=== PATIENT | male | born 1955 | race Caucasian/White ===

== ENCOUNTER → 2020-11-22 | Outpatient (CLI) | payer OTHER ==
[~2020-11-22] MED LIST: ALPR1TAB2 PO; DULO60CA6 PO; IBUP-1060 PO; VALS40TA2 PO
[2020-11-22 14:13] LABS: BASO % 0 % (0-3); EOS # 0.1 x10^3/uL (0.0-0.7); EOS % 2 % (0-3); HEMOGLOBIN 14.7 g/dL (13.0-17.5); LYMPH # 2.4 x10^3/uL (1.0-4.8); LYMPH % 35 % (24-48); MEAN CORPUSCULAR HEMOGLOBIN 29 pg (25-35); MEAN CORPUSCULAR HGB CONC 34 g/dL (31-37); MEAN CORPUSCULAR VOLUME 86 fL (79-100); MONO # 0.4 x10^3/uL (0.0-1.1); MONO % 6 % (0-9); NEUT # 3.9 x10^3/uL (1.8-7.7); NEUT % 57 % (31-73); PLATELET COUNT 264 x10^3/uL (140-400); RED BLOOD COUNT 5.01 x10^6/uL (4.30-5.70); RED CELL DISTRIBUTION WIDTH 13.3 % (11.5-14.5); WHITE BLOOD COUNT 6.8 x10^3/uL (4.0-11.0)
[2020-11-22 14:24] LABS: PROTHROMBIN TIME PATIENT 12.2 SEC (11.7-14.0)
[2020-11-22 14:31] LABS: ALBUMIN 3.6 g/dL (3.4-5.0); ALBUMIN/GLOBULIN RATIO 1.2 (1.0-1.7); CALCIUM 8.4 mg/dL (8.5-10.1); CREATININE 0.9 mg/dL (0.7-1.3); POTASSIUM 4.1 mmol/L (3.5-5.1); TOTAL BILIRUBIN 0.3 mg/dL (0.2-1.0); TOTAL PROTEIN 6.6 g/dL (6.4-8.2)
--- NOTE | 2020-11-22 15:23 | EKG ---
[facility] [address] [place] [id number] Test Date: 2020-11-22 Test Time: 15:19:28 Pat Name: CRISTELA CULVER Department: Room: Gender: [employer]er: J : 1955 Requested By: CHRISTY CARR Order Number: [id number] Reading MD: Lamine Denton MD Measurements Intervals [place] Rate: 77 P: -47 ME: 154 QRS: -6 QRSD: 88 T: 7 QT: 374 QTc: 425 Interpretive Statements SINUS RHYTHM NON-SPECIFIC ST/T CHANGES Electronically Signed On 11-23-2020 11:51:52 CDT by Lamine Denton MD
[2020-11-23 07:25] LABS: HEMOGLOBIN A1C 5.7 % (4.8-5.6)
== END ==
LOC: SURGPAT 13:28
PROVIDERS: ATTEND Neurological Surgery
DX: Z01.818 Encounter for other preprocedural examination (principal); R94.31 Abnormal electrocardiogram [ECG] [EKG]; M48.02 Spinal stenosis, cervical region; M54.12 Radiculopathy, cervical region; R53.1 Weakness
CPT/HCPCS: 36415; 80053; 83036; 85025; 85610; 85730; 87641; 93005

== ENCOUNTER → 2020-12-03 | Outpatient (CLI) | payer OTHER | LOC: LAB 09:02 | PROVIDERS: ATTEND Neurological Surgery | DX: Z01.812 Encounter for preprocedural laboratory examination (principal); U07.1 COVID-19; M48.02 Spinal stenosis, cervical region; M54.12 Radiculopathy, cervical region | CPT/HCPCS: U0003; U0005 ==

== ENCOUNTER → 2020-12-31 | Outpatient (CLI) | payer OTHER ==
[2020-12-30 15:48] VITALS: BP 132/81
[~2020-12-31] MED LIST changes: +ASCO-151 PO; +CYCL10TA2 PO; +METH-562 PO; +METH100V PO; +OXYC-325 PO; +SENN1TAB37 PO
[2020-12-31 12:49] LABS: BASO % 0 % (0-3); EOS # 0.1 x10^3/uL (0.0-0.7); EOS % 1 % (0-3); HEMATOCRIT 43.1 % (39.0-53.0); HEMOGLOBIN 14.7 g/dL (13.0-17.5); LYMPH # 2.3 x10^3/uL (1.0-4.8); LYMPH % 28 % (24-48); MEAN CORPUSCULAR HEMOGLOBIN 29 pg (25-35); MEAN CORPUSCULAR HGB CONC 34 g/dL (31-37); MEAN CORPUSCULAR VOLUME 85 fL (79-100); MONO # 0.7 x10^3/uL (0.0-1.1); MONO % 8 % (0-9); NEUT # 5.1 x10^3/uL (1.8-7.7); NEUT % 63 % (31-73); PLATELET COUNT 271 x10^3/uL (140-400); RED BLOOD COUNT 5.08 x10^6/uL (4.30-5.70); RED CELL DISTRIBUTION WIDTH 13.3 % (11.5-14.5); WHITE BLOOD COUNT 8.2 x10^3/uL (4.0-11.0)
[2020-12-31 12:58] LABS: PROTHROMBIN TIME PATIENT 12.3 SEC (11.7-14.0)
[2020-12-31 13:10] LABS: ALBUMIN/GLOBULIN RATIO 1.6 (1.0-1.7); CALCIUM 8.8 mg/dL (8.5-10.1); CREATININE 0.9 mg/dL (0.7-1.3); TOTAL BILIRUBIN 0.3 mg/dL (0.2-1.0); TOTAL PROTEIN 6.5 g/dL (6.4-8.2)
== END ==
LOC: SURGPAT 11:45
PROVIDERS: ATTEND Neurological Surgery
DX: Z01.818 Encounter for other preprocedural examination (principal); M54.2 Cervicalgia; M54.12 Radiculopathy, cervical region; M48.02 Spinal stenosis, cervical region
CPT/HCPCS: 36415; 80053; 85025; 85610; 85730; 87641

== ENCOUNTER → 2021-03-07 | Outpatient (CLI) | payer OTHER ==
[2021-01-05 10:47] VITALS: BP 131/95
--- NOTE | 2021-03-07 10:02 | KCIC ---
EXAM: XR CERVICAL SPINE 2-3V. HISTORY: Cervical fusion. COMPARISON: None. FINDINGS: Anterior cervical discectomy and fusion changes are noted at C5-6. Alignment is maintained. Prevertebral soft tissue swelling persists. Degenerative disc disease is some moderate at 7 and mild at C3-4. Facet osteoarthritis is moderate to severe diffusely on the left greater than right. IMPRESSION: 1. C5-6 anterior cervical discectomy and fusion. Mild prevertebral soft tissue swelling persists. 2. Degenerative disc disease and facet osteoarthritis as above. Electronically signed by: Marine Rosales MD (03/07/2021 9:59 AM) [id number]
== END ==
LOC: KCIC 09:34
PROVIDERS: ATTEND Neurological Surgery
DX: M50.31 Other cervical disc degeneration, high cervical region (principal); M47.812 Spondylosis without myelopathy or radiculopathy, cervical region; M79.89 Other specified soft tissue disorders; Z98.890 Other specified postprocedural states
CPT/HCPCS: 72040